=== PATIENT | female | born 1990 | race Caucasian/White ===

== ENCOUNTER 2020-12-28 09:57 | Emergency (ER) | payer BC ==
--- NOTE | 2020-12-28 10:46 | EDM.PDOC ---
ED HPI GENERAL MEDICAL PROBLEM - General Chief Complaint: Respiratory Problem Stated Complaint: LOST TASTE/SMELL Time Seen by Provider: 12/28/20 10:04 Source of Information: Reports: Patient History Limitations: Reports: No Limitations - History of Present Illness INITIAL COMMENTS - FREE TEXT/NARRATIVE: HISTORY AND PHYSICAL: History of present illness: Patient is a 30-year-old female, who is 17 weeks , who presents emergency room today with concern of possible COVID-19 infection. Patient states that she has not been vaccinated for Covid. Patient states that yester day she began developing generalized body aches, intermittent chills but has not checked for fever, cough, nasal congestion, and states when she woke up this morning lost taste and smell. Patient states that she had just recently started a to feel baby move and has been feeling little twinges. Patient denies any abdominal pain, cramping, change in vaginal discharge, or vaginal bleeding. Patient states that she is receiving [facility] Mcnulty and states that thus far her has been routine with no complications. Patient denies fever, chills, chest pain, shortness of breath, or cough. Denies headache, neck stiff ness, change in vision, syncope, or near syncope. Denies nausea, vomiting, abdominal pain, diarrhea, constipation, or dysuria. Has not noted any blood in urine or stool. Patient has been eating and drinking appropriately. Review of systems: As per history of present illness and below otherwise all systems reviewed and negative. Past medical history: As per history of present illness and as reviewed below otherwise noncontributory. Surgical history: As per history of present illness and as reviewed below otherwise noncontributory. Social history: See social history for further information Family history: As per history of present illness and as reviewed below otherwise noncontributory. Physical exam: General: Patient is alert, oriented, and in no acute distress. Patient sitting comfortably on exam table. Vitals stable and reviewed by me. HEENT: Atraumatic, normocephalic, pupils equal and reactive bilaterally, negative for conjunctival pallor or scleral icterus, mucous membranes moist, throat clear, neck supple, nontender, trachea midline. No drooling or trismus noted. No meningeal signs. No hot potato voice noted. Lungs: Clear to auscultation, breath sounds equal bilaterally, chest nontender. Patient speaking clearly without breathlessness, no wheezing or stridor, no accessory muscle use or respiratory distress. Heart: S1S2, regular rate and rhythm without overt murmur Abdomen: Soft, nondistended, nontender. Negative for masses or hepatosplenomegaly. Negative for costovertebral tenderness. Pelvis: Stable nontender. Genitourinary: Deferred. Rectal: Deferred. Skin: Intact, warm, dry. No lesions or rashes noted. Extremities: Atraumatic, negative for cords or calf pain. Neurovascular unremarkable. Neuro: Awake, alert, oriented. Cranial nerves II through XII unremarkable. Cerebellum unremarkable. Motor and sensory unremarkable throughout. Exam nonfocal. Medical Decision Making: heart tones at bedside are 160. Signs and symptoms that would prompt return to the ED thoroughly discussed with patient. Discussed importance of follow-up with her [employer] provider following COVID-19 quarantine Voices understanding and is agreeable to plan of care. Denies any further questions or concerns at this time. Diagnostics: COVID/Flu Therapeutics: None Prescription: Outpatient [facility] Impression: COVID-19 viral infection Plan: 1. Your COVID-19 screening is positive. That means you do have the coronavirus and are considered contagious. Your vital signs and oxygen saturation are well enough that you were able to monitor your symptoms at home. Continue to monitor for trouble breathing, new confusion or inability to arouse, bluish lips or face or any of the other symptoms we discussed -if this occurs please return to the emergency room.Continue to monitor your health at home for worsening symptoms so that you can be taken care of and treated quickly if needed. 2. Please self quarantine until 10 days have passed since your symptoms began AND you are fever free (<100.4 degrees fahrenheit) for 24 hours without the use of fever-reducing medications AND symptoms are improving. You should restrict activities outside of your home, except for getting medical care. Do not go to work, school, or public areas. Avoid using public transportation, ride-sharing, or taxis. Inform any persons that you have been in contact with since you started becoming symptomatic that you have tested positive; they should be made aware and take the appropriate steps as needed. 3. You may take Tylenol as needed for pain and fever management as this is safe in . 4. The [facility] department will be calling you and following up with you. The [place] COVID 19 Hotline phone number , They are open Tuesday - Tuesday 7am - 7pm. Follow up with your primary care provider for re-evaluation and re-testing after quarantine and discuss when you should be seen. 6. For more specific guidelines regarding isolation/quarantine please visit this website. https://www.health.[place].gov/sites/www/files/documents/Files/ALEX/coronavirus/Factsh eet_for_People_With_COVID-19.pdf Definitive disposition and diagnosis as appropriate pending reevaluation and review of above. Bilateral Chest Pain Score (Numeric/FACES): 7 - Related Data Allergies Allergy/AdvReac Type Severity Reaction Status Date / Time No Known Allergies Allergy Verified 12/28/20 10:07 Home Meds: Home Meds Vits #93/Iron Fum/FA [ Formula Tablet] 1 dose PO DAILY 12/28/20 [History] Past Medical History [employer] History: Reports: Social & Family History - Tobacco Use Tobacco Use Status *Q: Never Tobacco User - Recreational Drug Use Recreational Drug Use: No ED ROS GENERAL - Review of Systems Review Of Systems: Comprehensive ROS is negative, except as noted in HPI. ED EXAM, GENERAL - Physical Exam Exam: See Below (see dictation) Course - Vital Signs Last Recorded V/S: Last Vital Signs Temp 97.9 F 12/28/20 10:07 Pulse 95 12/28/20 10:07 Resp 18 12/28/20 10:07 BP 105/69 12/28/20 10:07 Pulse Ox 98 12/28/20 10:07 - Orders/Labs/Meds Labs: Laboratory Tests 12/28/20 Range/Units 10:10 SARS-CoV-2 RNA (JENIFFER) POSITIVE H (NEGATIVE) Departure - Departure Time of Disposition: 11:15 Disposition: Home, Self-Care 01 Clinical Impression: COVID-19 virus infection, Intrauterine - Discharge Information Referrals: Ruben Kate MD [Primary Care Provider] - Forms: ED Department Discharge Additional Instructions: The following information is given to patients seen in the emergency department who are being discharged to home. This information is to outline your options for follow-up care. We provide all patients seen in our emergency department with a follow-up referral. The need for follow-up, as well as the timing and circumstances, are variable depending upon the specifics of your emergency department visit. If you don't have a primary care physician on staff, we will provide you with a referral. We always advise you to contact your personal physician following an emergency department visit to inform them of the circumstance of the visit and for follow-up with them and/or the need for any referrals to a consulting specialist. The emergency department will also refer you to a specialist when appropriate. This referral assures that you have the opportunity for follow-up care with a specialist. All of these measure are taken in an effort to provide you with optimal care, which includes your follow-up. Under all circumstances we always encourage you to contact your private physician who remains a resource for coordinating your care. When calling for follow-up care, please make the office aware that this follow-up is from your recent emergency room visit. If for any reason you are refused follow-up, please contact the [facility] Emergency Department at and asked to speak to the emergency department charge nurse. [facility] [address] [place] [id number] [id number] 1. Your COVID-19 screening is positive. That means you do have the coronavirus and are considered contagious. Your vital signs and oxygen saturation are well enough that you were able to monitor your symptoms at home. Continue to monitor for trouble breathing, new confusion or inability to arouse, bluish lips or face or any of the other symptoms we discussed -if this occurs please return to the emergency room.Continue to monitor your health at home for worsening symptoms so that you can be taken care of and treated quickly if needed. 2. Please self quarantine until 10 days have passed since your symptoms began AND you are fever free (<100.4 degrees fahrenheit) for 24 hours without the use of fever-reducing medications AND symptoms are improving. You should restrict activities outside of your home, except for getting medical care. Do not go to work, school, or public areas. Avoid using public transportation, ride-sharing, or taxis. Inform any persons that you have been in contact with since you started becoming symptomatic that you have tested positive; they should be made aware and take the appropriate steps as needed. 3. You may take Tylenol as needed for pain and fever management as this is safe in . 4. The [facility] health department will be calling you and following up with you. The [place] COVID 19 Hotline phone number , They are open Tuesday - Tuesday 7am - 7pm. Follow up with your primary care provider for re-evaluation and re-testing after quarantine and discuss when you should be seen. 6. For more specific guidelines regarding isolation/quarantine please visit this website. https://www.health.[place].gov/sites/www/files/documents/Files/ALEX/coronavirus/Factsh eet_for_People_With_COVID-19.pdf Sepsis Event Note (ED) - Evaluation Sepsis Screening Result: No Definite Risk - Focused Exam Vital Signs: Vital Signs Temp Pulse Resp BP Pulse Ox 12/28/20 10:07 97.9 F 95 18 105/69 98
== END 2020-12-28 11:22 | disposition home or self-care (01) ==
LOC: MW.ED 09:57
DX: O98.512 Other viral diseases complicating pregnancy, second trimester (principal); U07.1 COVID-19; Z3A.17 17 weeks gestation of pregnancy
CPT/HCPCS: 87804; 99283; U0002

== ENCOUNTER 2021-06-01 07:23 | Inpatient (IN) | payer BC ==
[2021-06-01] MEDS ORDERED: Butorphanol 1 MG/ML SDV IVPUSH PRN (07:39)
[2021-06-01] MEDS ORDERED: Ondansetron 4 MG/2 ML SDV IVPUSH PRN (07:39)
[2021-06-01] MEDS ORDERED: Tranexamic Acid 1,000 MG in Sodium Chloride 0.9% 100 ML IV PRN (07:39)
[2021-06-01] MEDS ORDERED: Sodium Chloride 0.9% 20 ML SDV IV PRN (07:39)
[2021-06-01] MEDS ORDERED: Lidocaine 1% 50 ML MDV INJECT PRN (07:39)
[2021-06-01] MEDS ORDERED: Methylergonovine 0.2 MG/1 ML Amp IM PRN (07:39)
[2021-06-01] MEDS ORDERED: Sodium Chloride 0.9% 2.5 ML Syringe FLUSH PRN (07:39)
[2021-06-01] MEDS ORDERED: Water For Irrigation,Sterile 1,000 ML Container IRR PRN (07:39)
[2021-06-01] MEDS ORDERED: Sodium Chloride 0.9% 10 ML Syringe FLUSH PRN (07:39)
[2021-06-01] MEDS ORDERED: Misoprostol 200 MCG Tab PO PRN (07:39)
[2021-06-01] MEDS ORDERED: Carboprost Tromethamine 250 MCG/1 ML Amp IM PRN (07:39)
[2021-06-01] MEDS: Lactated Ringers 1,000 ML IV SCH ×3 (07:45→10:41)
[2021-06-01] MEDS ORDERED: Oxytocin/0.9 % Sodium Chloride 30 UNIT/500 ML BAG IV SCH (07:45)
[2021-06-01] MEDS ORDERED: Ropivacaine 100 ML ONE (08:12)
[2021-06-01] MEDS ORDERED: ePHEDrine 50 MG/ML SDV IVPUSH PRN ×2 (08:22)
[2021-06-01] MEDS ORDERED: Ropivacaine 200 MG in Premix Bag 1 BAG EPIDUR SCH (08:30)
[2021-06-01] MEDS ORDERED: Bisacodyl 10 MG Supp RECTAL PRN (12:55)
[2021-06-01] MEDS ORDERED: Lanolin 100% Cream 7 GM Tube TOP PRN (12:55)
[2021-06-01] MEDS ORDERED: Acetaminophen 500 MG Tab PO PRN ×2 (12:55)
[2021-06-01] MEDS ORDERED: Ibuprofen 800 MG Tab PO PRN (12:55)
[2021-06-01] MEDS ORDERED: Benzocaine/Menthol 20%-0.5% Spray 78 GM Cannister TOP PRN (12:55)
[2021-06-01] MEDS ORDERED: Docusate Sodium 100 MG Cap PO PRN (12:55)
[2021-06-01] MEDS ORDERED: Witch Hazel Medicated Pads 40/Jar TOP PRN (12:55)
[2021-06-01] MEDS ORDERED: Ibuprofen 400 MG Tab PO PRN (12:55)
[2021-06-01] MEDS ORDERED: oxyCODONE 5 MG Tab PO PRN (12:55)
== END 2021-06-02 14:12 | disposition home or self-care (01) | DRG 560 ==
LOC: MW.OBCHECK 07:23 → MW.OB 07:39 → OBSVTOIN 12:35 → MW.OB 12:35
PROVIDERS: ADMIT Obstetrics & Gynecology; ATTEND Obstetrics & Gynecology
PROC: 10E0XZZ Delivery of Products of Conception, External Approach (ICD-10-PCS; principal; 2021-06-01)
PROC: 3E0R3BZ Introduction of Anesthetic Agent into Spinal Canal, Percutaneous Approach (ICD-10-PCS; 2021-06-01)
PROC: 00HU33Z Insertion of Infusion Device into Spinal Canal, Percutaneous Approach (ICD-10-PCS; 2021-06-01)
DX: O99.02 Anemia complicating childbirth (principal); D50.9 Iron deficiency anemia, unspecified; Z20.822 Contact with and (suspected) exposure to COVID-19; Z37.0 Single live birth; Z3A.39 39 weeks gestation of pregnancy
CPT/HCPCS: 01967; 36415; 51702; 59025; 59409; 82803; 85014; 85018; 85027; 86592; 86850; 86900; 86901; A9270-GY; J2590; J2795; J7120; U0002

== ENCOUNTER 2022-05-03 07:47 | Observation (INO) | payer BC ==
[2022-05-03] MEDS ORDERED: Sodium Chloride 0.9% 20 ML SDV IV PRN (07:53)
[2022-05-03] MEDS ORDERED: Sodium Chloride 0.9% 2.5 ML Syringe FLUSH PRN (07:53)
[2022-05-03] MEDS ORDERED: Sodium Chloride 0.9% 10 ML Syringe FLUSH PRN (07:53)
[2022-05-03] MEDS ORDERED: Ondansetron 4 MG/2 ML SDV IVPUSH PRN (08:00)
[2022-05-03] MEDS ORDERED: Lactated Ringers 1,000 ML IV SCH (08:00)
[2022-05-03] MEDS ORDERED: Morphine 4 MG/ML Syringe IVPUSH PRN (08:03)
[2022-05-03] MEDS ORDERED: Ketorolac 30 MG/ML SDV IVPUSH PRN (08:05)
[2022-05-03] MEDS ORDERED: Misoprostol 200 MCG Tab PO PRN ×2 (08:30→13:17)
[2022-05-03] MEDS ORDERED: Misoprostol 50 MCG (1/2 of 100 MCG) Tab VAG PRN (09:12)
[2022-05-03] MEDS ORDERED: Misoprostol 200 MCG Tab VAG ONE (09:15)
[2022-05-03 09:39] LABS: CARBON DIOXIDE,CO2 23.9 mmol/L (21.0-32.0); POTASSIUM,K 3.6 mmol/L (3.5-5.1)
[2022-05-03] MEDS ORDERED: Phenylephrine HCl In 0.9% NaCl 1 MG/10 ML Vial IVPUSH PRN (09:47)
[2022-05-03] MEDS ORDERED: ePHEDrine 50 MG/ML SDV IVPUSH PRN ×2 (09:47)
[2022-05-03] MEDS ORDERED: Ropivacaine HCl/PF 400 MG in Premix Bag 1 BAG EPIDUR SCH (10:00)
[2022-05-03] MEDS ORDERED: Misoprostol 200 MCG Tab PO SCH (12:30)
[2022-05-03] MEDS ORDERED: Carboprost Tromethamine 250 MCG/1 ML Amp IM PRN (13:17)
[2022-05-03] MEDS ORDERED: Tranexamic Acid 1,000 MG in Sodium Chloride 0.9% 100 ML IV PRN (13:17)
[2022-05-03] MEDS ORDERED: Lidocaine 1% 50 ML MDV INJECT PRN (13:17)
[2022-05-03] MEDS ORDERED: Methylergonovine 0.2 MG/1 ML Amp IM PRN (13:17)
[2022-05-03] MEDS ORDERED: Oxytocin/0.9 % Sodium Chloride 30 UNIT/500 ML BAG IV SCH (13:30)
[2022-05-03] MEDS ORDERED: Misoprostol 200 MCG Tab VAG PRN (13:31)
[2022-05-03] MEDS: Phenylephrine HCl In 0.9% NaCl 1 MG/10 ML Vial IVPUSH SCH (19:37)
== END 2022-05-03 20:00 | disposition home or self-care (01) ==
LOC: MW.OBCHECK 07:47 → MW.OB 07:48 → MW.OBCHECK 07:53
PROVIDERS: ADMIT Obstetrics & Gynecology; ATTEND Obstetrics & Gynecology
DX: O36.4XX0 Maternal care for intrauterine death, not applicable or unspecified (principal); Z3A.24 24 weeks gestation of pregnancy; Z79.899 Other long term (current) drug therapy
CPT/HCPCS: 36415; 80053; 85025; 85384; 85610; 85730; 86592; 86850; 86900; 86901; 87635; 96374; A9270; G0378; J2270; J7120; U0002

== ENCOUNTER 2024-11-03 16:02 | Emergency (ER) | payer BC ==
[2024-11-03] MEDS ORDERED: Sodium Chloride 0.9% 10 ML Syringe FLUSH PRN (16:15)
[2024-11-03] MEDS ORDERED: Sodium Chloride 0.9% 2.5 ML Syringe FLUSH PRN (16:15)
[2024-11-03 16:39] LABS: APPEARANCE,URINE CLEAR; BASOPHILS ABSOLUTE AUTO 0.04 K/uL (0.00-0.20); BASOPHILS PERCENT AUTO 0.8 % (0.0-1.0); EOSINOPHILS ABSOLUTE AUTO 0.17 K/uL (0.00-0.45); EOSINOPHILS PERCENT AUTO 3.4 % (0.0-6.0); GLUCOSE,URINE NEGATIVE (NEGATIVE); IMMATURE GRAN ABSOLUTE AUTO 0.01 K/uL (0.00-0.05); IMMATURE GRAN PERCENT AUTO 0.2 % (0.0-0.4); LYMPHOCYTES ABSOLUTE AUTO 2.05 K/uL (1.00-4.80); LYMPHOCYTES PERCENT AUTO 40.6 % (24.0-44.0); MEAN PLATELET VOLUME 8.7 fL (9.4-12.3); MONOCYTES ABSOLUTE AUTO 0.43 K/uL (0.00-0.80); MONOCYTES PERCENT AUTO 8.5 % (0.0-8.0); NEUTROPHILS ABSOLUTE AUTO 2.35 K/uL (1.80-7.70); NEUTROPHILS PERCENT AUTO 46.5 % (41.0-71.0); NRBC ABSOLUTE 0.00 K/uL (0.00-0.02); NRBC PERCENT 0.0 /100WBC (0.0-0.2); OCCULT BLOOD,URINE NEGATIVE (NEGATIVE); PLATELET COUNT,PLT 340 K/uL (150-400); RED BLOOD CELL COUNT 4.14 M/uL (4.10-5.30); WHITE BLOOD CELL COUNT,WBC 5.05 K/uL (3.9-11.3)
[2024-11-03 17:02] LABS: A/G RATIO 1.1 (0.9-1.6); ALANINE AMINOTRANSFERASE,ALT 17.0 IU/L (14-63); ASPARTATE AMNIOTRANSFERASE,AST 15.0 IU/L (15-37); BILIRUBIN TOTAL 0.4 mg/dL (0.2-1.0); BLOOD UREA NITROGEN,BUN 10.0 mg/dL (7.0-18.0); CARBON DIOXIDE,CO2 24.2 mmol/L (21.0-32.0); CHLORIDE,CL 106.0 mmol/L (98-107); CREATININE 0.9 mg/dL (0.6-1.0); EST CRCL DRUG DOSING (CG) 100.3 mL/min; ESTIMATED GFR 87.0 mL/min (>60); GLUCOSE RANDOM 97.0 mg/dL (74-106); POTASSIUM,K 3.7 mmol/L (3.5-5.1); PROTEIN TOTAL,TP 7.7 g/dL (6.4-8.2); SODIUM,NA 141.0 mmol/L (136-145)
[2024-11-03] MEDS: Iopamidol 755 Mg/ML 100 ML Bottle IVPUSH ONE (17:07)
[2024-11-03] MEDS: Alum Hydrox/Mag Hydrox/Simeth 15 ML, Lidocaine 2% 5 ML PO ONE (18:05)
== END 2024-11-03 18:19 | disposition home or self-care (01) ==
LOC: MW.ED 16:02
DX: K59.00 Constipation, unspecified (principal); D64.9 Anemia, unspecified; Z90.49 Acquired absence of other specified parts of digestive tract; Z79.899 Other long term (current) drug therapy
CPT/HCPCS: 36415; 74177; 80053; 81003; 81025; 83690; 85025; 96360; 99284; J3490; J7030; Q9967; 99283; A9270-GY